=== PATIENT | female | born 2000 | race Caucasian/White ===

== ENCOUNTER 2018-02-14 21:35 | Emergency (ER) | payer BC ==
[2018-02-14 21:58] VITALS: BP 117/69
--- NOTE | 2018-02-14 21:58 | ED ---
Throat Pain/Nasal Congestion - HPI Summary HPI Summary: 17 yr old female with runny nose, sore throat, cough. Onset of symptoms three days ago. Denies drooling. No fever. She had mono back in the spring. She is a [employer] student from [place]. She has no other complaints. - History of Current Complaint Time Seen by Provider: 02/14/18 21:43 - Allergies/Home Medications Allergies/Adverse Reactions: Allergies Allergy/AdvReac Type Severity Reaction Status Date / Time peanut Allergy Anaphylatic Verified 02/14/18 22:00 Shock shrimp Allergy Anaphylatic Verified 02/14/18 22:00 Shock Home Medications: Home Medications Albuterol 2.5MG/3ML (0.083%)* [Ventolin 2.5 MG/3 ML NEB.LOLY*] 2.5 mg INH Q4H PRN 02/14/18 [History Confirmed 02/14/18] Albuterol HFA INHALER* [Ventolin HFA Inhaler*] 2 puff INH Q4H PRN 02/14/18 [ History Confirmed 02/14/18] Budesonide/Formote 160/4.5(NF) [Symbicort 160/4.5 (NF)] 2 puff INH BID PRN 02/14 [History Confirmed 02/14/18] Eucalyptus/Menthol [Ordonez Cough Drops] 1 va [place] DAILY PRN 02/14/18 [History Confirmed 02/14/18] Norethindrone-E.estradiol-Iron [Junel Fe 24 1-20 mg-Mcg(24)] 1 tab PO DAILY [History Confirmed 02/14/18] PMH/Surg Hx/FS Hx/Imm Hx Infectious Disease History: Denies: Traveled Outside the [place] in Last 30 Days - Family History Known Family History: Positive: None - Social History Occupation: Student Review of Systems Constitutional: Negative Positive: Sore Throat, Nasal Discharge Positive: Cough All Other Systems Reviewed And Are Negative: Yes Physical Exam Triage Information Reviewed: Yes Vital Signs Reviewed: Yes Appearance: Positive: Well-Appearing, No Pain Distress Skin: Positive: Warm, Skin Color Reflects Adequate Perfusion Head/Face: Positive: Normal Head/Face Inspection Eyes: Positive: EOMI ENT: Positive: Normal ENT inspection, Pharyngeal erythema, Nasal congestion, TMs normal, Uvula midline. Negative: Tonsillar swelling, Tonsillar exudate, Trismus, Muffled voice, Hoarse voice Neck: Positive: Supple, Nontender, Enlarged Nodes @ - minimal enlarged anterior superior cervical nodes. Respiratory/Lung Sounds: Positive: Clear to Auscultation, Breath Sounds Present Cardiovascular: Positive: RRR. Negative: Murmur Abdomen Description: Negative: Distended Musculoskeletal: Positive: Strength/ROM Intact Neurological: Positive: Sensory/Motor Intact, Alert, Oriented to Person Place, Time, CN Intact II-III, Normal Gait, Speech Normal Psychiatric: Positive: Normal - [place] Coma Scale Best Eye Response: 4 - Spontaneous Best Motor Response: 6 - Obeys Commands Best Verbal Response: 5 - Oriented Coma Scale Total: 15 EENT Course/Dx - Course Course Of Treatment: 17 yr old with URI symptoms. - Diagnoses Provider Diagnoses: Upper respiratory infection Discharge - Sign-Out/Discharge Documenting (check all that apply): Patient Departure All imaging exams completed and their final reports reviewed: No Studies - Discharge Plan Condition: Good Disposition: HOME Patient Education Materials: Upper Respiratory Infection (ED) Referrals: No Primary Care Phys,NOPCP [Primary Care Provider] - [facility] [Outside] - Billing Disposition and Condition Condition: GOOD Disposition: Home
== END 2018-02-14 22:16 | disposition home or self-care (01) ==
LOC: UCCORT 21:35
DX: J06.9 Acute upper respiratory infection, unspecified (principal)
CPT/HCPCS: 87651; 99201; G0463

== ENCOUNTER 2019-02-04 21:22 | Emergency (ER) | payer BC ==
--- NOTE | 2019-02-04 21:32 | UC ---
Throat Pain/Nasal Iron HPI - HPI Summary HPI Summary: 18 y/o female presents to the urgent care c/o mild sore throat, nasal congestion w/ yellowish nasal discharge and PND, fatigue, body aches and PAUL since last night. She took Advil sinus cough medication to alleviate symptoms. She has has strep in the past and it doesn't feel like strep. She declines Rapid strep. She is concerned w/ the flu. Body aches and PAUL is 4/10. Pt has been eating and drinking fluids well. Pt denies fever, SOB, wheezing, dizziness , neck pain, rash, abdominal pain, N/V/d. t - History of Current Complaint Stated Complaint: CONGESTION,SORE THROAT Time Seen by Provider: 02/04/19 21:30 Hx Obtained From: Patient Hx Last Menstrual Period: 3 wks ago Onset/Duration: Gradual Onset, Lasting Days - 1 day, Still Present, Worse Since - this morning w/ body aches Severity: Mild Pain Intensity: 4 - body aches and mild sore throat Pain Scale Used: 0-10 Numeric Cough: Nonproductive Associated Signs & Symptoms: Positive: Sinus Discomfort, Nasal Discharge - yellowish. Negative: Dysphagia, Wheezing, Fever - Epiglottits Risk Factors Epiglottis Risk Factors: Negative - Allergies/Home Medications Allergies/Adverse Reactions: Allergies Allergy/AdvReac Type Severity Reaction Status Date / Time peanut Allergy Anaphylatic Verified 02/04/19 21:33 Shock shrimp Allergy Anaphylatic Verified 02/04/19 21:33 Shock PMH/Surg Hx/FS Hx/Imm Hx Previously Healthy: Yes Respiratory History: Asthma - Surgical History Surgical History: Yes Surgery Procedure, Year, and Place: oral sx - Family History Family History: lung cancer, breast cancer, ovarian CA - Social History Occupation: Student Lives: With Family Alcohol Use: Occasionally Substance Use Type: None Smoking Status (MU): Never Smoked Tobacco - Immunization History Vaccination Up to Date: Yes Review of Systems All Other Systems Reviewed And Are Negative: Yes Constitutional: Positive: Fatigue, Other - body aches Skin: Positive: Negative Eyes: Positive: Negative ENT: Positive: Sore Throat - mild, Nasal Discharge - yellowish, Sinus Congestion , Other - yellowish PND Respiratory: Positive: Cough - dry Cardiovascular: Positive: Negative Gastrointestinal: Positive: Negative Genitourinary: Positive: Negative Motor: Positive: Negative Neurovascular: Positive: Negative Musculoskeletal: Positive: Myalgia Neurological: Positive: Headache Psychological: Positive: Negative Is Patient Immunocompromised?: No Physical Exam - Summary Physical Exam Summary: VITAL SIGNS: Reviewed. GENERAL: Patient is a well developed and nourished obese female who is sitting comfortably in the examining table. Patient is not in any acute respiratory distress. HEAD AND FACE: No signs of trauma. No ecchymosis, hematomas or skull depressions. No sinus tenderness. EYES: PERRLA, EOMI x 2, No injected conjunctiva, no nystagmus. No photophobia. EARS: Hearing grossly intact. Ear canals and tympanic membranes are within normal limits. MOUTH: Positive pharynx with mild erythema, no exudates, No B/L tonsillar enlargement , no exudate. Uvula in midline. edematous nasal mucosa w/ clear nasal discharge, clear PND NECK: Supple, trachea is midline, Positive anterior cervical lymphadenopathy, no JVD, no carotid bruit, no c-spine tenderness, neck with full ROM. No meningeal signs, no Kernig's or brudzinskis signs. CHEST: Symmetric, no tenderness at palpation LUNGS: Clear to auscultation bilaterally. No wheezing or crackles. CVS: Regular rate and rhythm, S1 and S2 present, no murmurs or gallops appreciated. ABDOMEN: Soft, non-tender. No signs of distention. No rebound no guarding, and no masses palpated. Bowel sounds are normal. EXTREMITIES: FROM in all major joints, no edema, no cyanosis or clubbing. NEURO: Alert and oriented x 3. No acute neurological deficits. Pt follows commands. Triage Information Reviewed: Yes Throat Pain/Nasal Course/Dx - Course Course Of Treatment: 18 y/o female presents to the urgent care c/o mild sore throat, nasal congestion w/ yellowish nasal discharge and PND, fatigue, body aches and PAUL since last night. She took Advil sinus cough medication to alleviate symptoms. She has has strep in the past and it doesn't feel like strep. She declines Rapid strep. She is concerned w/ the flu. Body aches and PAUL is 4/10. Pt has been eating and drinking fluids well. Pt denies fever, SOB, wheezing, dizziness , neck pain, rash, abdominal pain, N/V/d. Hx obtained. Pt is hemodynamically stable, w/ a viral syndrome on examination. Rapid Influenza A&B ordered, result : negative. Pt advised to take ibuprofen PO to alleviates symptoms of pain and swelling. Advised on hand washing to avoid spreading. Pt advised to rest, eat well and avoid strenuous exercise. If symptoms do not improve or worsen advised to return to the urgent care or f/u with her PCP in 3 days for further evaluation and treatment. D/C instructions explained. Pt understood and agreed w/ plan of care. Pt left clinic ambulating and hemodynamically stable. t - Differential Dx/Diagnosis Differential Diagnosis/HQI/PQRI: Influenza, Laryngitis, Mononucleosis, Otitis Media, Pharyngitis, Sinusitis, Tonsillitis, URI Provider Diagnosis: Acute viral syndrome Discharge ED - Sign-Out/Discharge Documenting (check all that apply): Patient Departure - D/C home All imaging exams completed and their final reports reviewed: No Studies - Discharge Plan Condition: Stable Disposition: HOME Patient Education Materials: Viral Syndrome (ED) Referrals: [facility] [Outside] - 3 Days Additional Instructions: 1- Rapid influenza A&B: negative 2-Please take ibuprofen PO q6-8hrs prn as instructed after meals to alleviate pain and swelling. Increase fluid intake, eat well, rest and avoid strenuous exercise 3-If symptoms do not improve or worsen please return to the urgent care or f/u with your PCP in 3 days for further evaluation and treatment. - Billing Disposition and Condition Condition: STABLE Disposition: Home
[2019-02-04 21:33] VITALS: BP 131/84
[2019-02-04 21:59] LABS: Influenza A Molecular NEGATIVE (Negative); Influenza B Molecular NEGATIVE (Negative)
== END 2019-02-04 22:03 | disposition home or self-care (01) ==
LOC: UCCORT 21:22
DX: B34.9 Viral infection, unspecified (principal)
CPT/HCPCS: 99211; G0463